=== PATIENT | female | born 1965 | race Caucasian/White ===

== ENCOUNTER 2016-07-28 05:26 | Day surgery (SDC) | payer MEDICAID ==
[2016-07-22 09:31] LABS: HEMATOCRIT 43.3 % (36.0-47.0); HEMOGLOBIN 14.7 g/dL (12.0-15.5); HGB HCT DIFFERENCE 0.8; MEAN CORPUSCULAR HEMOGLOBIN 29.9 pg (27.0-33.4); MEAN CORPUSCULAR HGB CONC 33.9 g/dL (32.0-36.0); MEAN CORPUSCULAR VOLUME 88 fl (80-97); RED BLOOD COUNT 4.91 10^6/uL (3.72-5.28); RED CELL DISTRIBUTION WIDTH 14.1 % (11.5-14.0); WHITE BLOOD COUNT 5.8 10^3/uL (4.0-10.5)
[2016-07-22 10:04] LABS: ANION GAP 12 (5-19); BLOOD UREA NITROGEN 12 mg/dL (7-20); CALCIUM 9.9 mg/dL (8.4-10.2); CARBON DIOXIDE 30 mmol/L (22-30); CHLORIDE 104 mmol/L (98-107); CREATININE RESULT 0.78 mg/dL (0.52-1.25); GLUCOSE 95 mg/dL (75-110); POTASSIUM 4.4 mmol/L (3.6-5.0); SODIUM 145.6 mmol/L (137-145)
--- NOTE | 2016-07-22 11:24 | EKG REPORT ---
SEVERITY:- NORMAL ECG - SINUS RHYTHM : Confirmed by: Qi Chatman 22-Jul-2016 11:24:12
[~2016-07-28 05:26] MED LIST: CEFAZOLIN SODIUM 1 GM in DEXTROSE 5%-WATER 50 ML IV PRN; LACTATED RINGERS 1000 ML IV PRN; LIDOCAINE 0.5% INJ-PF (5 MG/ML) 50 ML SDV SUBCUT PRN
[2016-07-28] MEDS ORDERED: LIDOCAINE 1% INJ-PF (10 MG/ML) 30 ML SDV ONE (06:38)
[2016-07-28] MEDS ORDERED: FENTANYL CITRATE INJ/PF 100 MCG/2 ML AMPUL ONE (07:11)
[2016-07-28] MEDS ORDERED: MIDAZOLAM 2 MG/2 ML INJ ONE (07:12)
[2016-07-28] MEDS ORDERED: PROPOFOL INJ 200 MG/20 ML VIAL IV ONE (07:12)
[2016-07-28] MEDS ORDERED: FENTANYL CITRATE INJ/PF 100 MCG/2 ML AMPUL IV PRN ×3 (07:49)
[2016-07-28] MEDS ORDERED: MEPERIDINE HCL/PF INJ 25 MG/1 ML DISP.SYRIN IV PRN (07:49)
[2016-07-28] MEDS ORDERED: MORPHINE SULFATE 10 MG/ML INJ IV PRN (07:49)
[2016-07-28] MEDS ORDERED: OXYCODONE-ACETAMINOPHEN 5-325 MG TABLET PO PRN ×3 (07:49→08:27)
[2016-07-28] MEDS ORDERED: DIPHENHYDRAMINE HCL 50 MG/ML VIAL IV PRN (07:49)
[2016-07-28] MEDS ORDERED: PROMETHAZINE HCL INJ 25 MG/1 ML VIAL IV PRN ×2 (07:49)
--- NOTE | 2016-07-28 08:21 | Operative Report ---
Operative Report DATE OF SURGERY: 07/28/16 PREOPERATIVE DIAGNOSIS: Symptomatic right shoulder fibrofatty lipoma POSTOPERATIVE DIAGNOSIS: Same OPERATION: Complete excision of right shoulder fibrofatty lipoma with drain placement SURGEON: FERNANDA SARMIENTO [employer] COMMUNICATIONS OPERATOR: JARED ORR ANESTHESIA: LMAC TISSUE REMOVED OR ALTERED: Fragmented fiber fatty lipoma right shoulder COMPLICATIONS: None ESTIMATED BLOOD LOSS: scant INTRAOPERATIVE FINDINGS: See below PROCEDURE: Patient seen in the preoperative holding her right shoulder was marked. She was taken to the operating room where LMAC anesthesia was induced. Patient placed in left lateral decubitus position right side up, right arm tucked and the right shoulder exposed. Surgical plan and surgical time out conducted. Skin prep draped in a sterile fashion. Skin was anesthetized with quarter percent Marcaine. 3 cm incision made over the point of maximum deformity. Using a combination of blunt, scissors, and electrocautery dissection, the fiber fatty mass was taken out in a piecemeal fashion. Bleeding was negligible. Hemostasis was achieved with electrocautery. The fibrofatty lipoma was confined to the deep subcutaneous space. Large Sharif drain was brought out through the incision laterally, the wound closed in layers with 3-0 Vicryl benzoin and Steri-Strips. Drain to bulb suction. Postop procedure well, taken recovery in stable condition. The physician railways assistant, Ms. Orr, provided assistance during this case by: Assisting retracting tissue, instillation of local anesthesia and closure of skin incisions.
--- NOTE | 2016-07-28 08:26 | PDOC DISCHARGE SUMMARY ---
Discharge Summary (SDC) - Discharge Final Diagnosis: Fibrolipoma right shoulder Date of Surgery: 07/28/16 Discharge Date: 07/28/16 Condition: Good Treatment or Instructions: Teach patient drain care; patient to follow-up with Dr. Mustafa and/or JOE Gan, also surgical clinic 1 week. Prescription with chart for pain medication. Patient may take Percocet when necessary pain. She is to take sponge baths. Prescriptions: Oxycodone HCl/Acetaminophen [Percocet 5-325 mg Tablet] 1 tab PO ASDIR PRN #15 tab PRN Reason: Discharge Activity: Activity As Tolerated Home Care Assistance: None Needed Report the Following to Your Physician Immediately: Shortness of Breath, Increase in Pain, Fever over 101 Degrees
[2016-07-28 10:12] VITALS: BP 118/78
== END 2016-07-28 10:05 | disposition home or self-care (01) ==
LOC: OROUT 05:26
PROVIDERS: ATTEND Surgery
PROC: 0JBD0ZX Excision of Right Upper Arm Subcutaneous Tissue and Fascia, Open Approach, Diagnostic (ICD-10-PCS; principal; 2016-07-28 07:30)
DX: D17.21 Benign lipomatous neoplasm of skin and subcutaneous tissue of right arm (principal); J44.9 Chronic obstructive pulmonary disease, unspecified; R25.1 Tremor, unspecified; E04.1 Nontoxic single thyroid nodule; G43.909 Migraine, unspecified, not intractable, without status migrainosus; F17.210 Nicotine dependence, cigarettes, uncomplicated; Z79.51 Long term (current) use of inhaled steroids; Z79.899 Other long term (current) drug therapy
CPT/HCPCS: 93005; 36415; 85027; 80048; 88304 ×2; 71020; 93010; 11400; J2250; J0690; J3010; J3490; J2704; 400